=== PATIENT | male | born 1960 | race Caucasian/White ===

== ENCOUNTER → 2024-09-30 09:21 | Outpatient (REF) | payer BC, SELFPAY | LOC: RAD 09:21 | PROVIDERS: ATTENDING PHYSICIAN Internal Medicine Gastroenterology; FAMILY PHYSICIAN Student in an Organized Health Care Education/Training Program; OTHER PHYSICIAN Internal Medicine | DX: K31.5 Obstruction of duodenum (principal) | CPT/HCPCS: 74246; 74248 ==

== ENCOUNTER 2024-10-28 06:24 | Day surgery (SDC) | payer BC, SELFPAY | END 2024-10-28 12:12 | disposition home or self-care (01) | LOC: GI 06:24 | PROVIDERS: ATTENDING PHYSICIAN Internal Medicine; FAMILY PHYSICIAN Student in an Organized Health Care Education/Training Program | DX: K31.5 Obstruction of duodenum (principal); K31.89 Other diseases of stomach and duodenum; R68.81 Early satiety | CPT/HCPCS: 43249 ==

== ENCOUNTER 2024-12-01 06:11 | Day surgery (SDC) | payer BC, SELFPAY | END 2024-12-01 10:54 | disposition home or self-care (01) | LOC: GI 06:11 | PROVIDERS: ATTENDING PHYSICIAN Internal Medicine; FAMILY PHYSICIAN Student in an Organized Health Care Education/Training Program | DX: R13.10 Dysphagia, unspecified (principal); K31.5 Obstruction of duodenum; K29.50 Unspecified chronic gastritis without bleeding; K20.90 Esophagitis, unspecified without bleeding | CPT/HCPCS: 43245; 43239; 88305; 88342 ==

== ENCOUNTER 2024-12-12 06:28 | Day surgery (SDC) | payer BC, SELFPAY ==
[2024-12-12 09:24] VITALS: BMI 21.6
[2024-12-12 09:26] VITALS: BMI 21.6
[2024-12-12 09:27] VITALS: BP 141/88
[2024-12-12 13:15] VITALS: BP 114/77
[2024-12-12 13:30] VITALS: BP 121/76
[2024-12-12 13:45] VITALS: BP 128/75
== END 2024-12-12 14:01 | disposition home or self-care (01) ==
LOC: SDS 06:28
PROVIDERS: ATTENDING PHYSICIAN Internal Medicine
DX: K31.5 Obstruction of duodenum (principal); K31.89 Other diseases of stomach and duodenum
CPT/HCPCS: 43236; 43239; 43249; J3301; 88305; C1726

== ENCOUNTER → 2025-07-01 18:29 | Outpatient (REF) | payer BC, SELFPAY | LOC: MRI 3T 18:29 | PROVIDERS: ATTENDING PHYSICIAN Student in an Organized Health Care Education/Training Program | DX: R41.89 Other symptoms and signs involving cognitive functions and awareness (principal); R20.0 Anesthesia of skin; R20.2 Paresthesia of skin; M62.81 Muscle weakness (generalized) | CPT/HCPCS: 70553; 72156; A9575 ==

== ENCOUNTER → 2025-07-28 12:00 | Outpatient (REF) | payer BC, SELFPAY | LOC: DHSLP 12:00 | PROVIDERS: ATTENDING PHYSICIAN Student in an Organized Health Care Education/Training Program | DX: G47.19 Other hypersomnia (principal) | CPT/HCPCS: 95800 ==